=== PATIENT | female | born 1965 | race Caucasian/White ===

== ENCOUNTER → 2016-11-02 | Outpatient (CLI) | payer BC, OTHER | LOC: ULTRA 12:44 | DX: N83.201 Unspecified ovarian cyst, right side (principal) ==

== ENCOUNTER → 2021-02-04 | Outpatient (CLI) | payer OTHER | LOC: RAD 13:47 | PROVIDERS: ATTEND Emergency Medicine | DX: N64.4 Mastodynia (principal) ==